=== PATIENT | male | born 1950 | race Caucasian/White ===

== ENCOUNTER 2017-02-19 05:04 | Emergency (ER) | payer MEDICARE, BC ==
[2017-02-19 05:31] VITALS: BP 208/98
[2017-02-19] MEDS ORDERED: Acetaminophen/HYDROcodone 325-5 MG Tab PO ONE (05:43)
--- NOTE | 2017-02-19 05:49 | EDM.PDOC ---
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 History of stroke and high blood pressure left toothache Pain Score (Numeric/FACES): 6 - Related Data Allergies Allergy/AdvReac Type Severity Reaction Status Date / Time No Known Allergies Allergy Verified 02/19/17 05:20 Home Meds: Home Meds Hydrocodone/Acetaminophen [Hydrocodon-Acetaminophen 5-325] 1 - 2 each PO Q4H PRN #16 tablet 02/19/17 [Rx] Past Medical History HEENT History: Reports: Impaired Vision Neurological History: Reports: CVA, Other (See Below) Other Neuro History: December 02 Stroke Psychiatric History: Reports: Anxiety Endocrine/Metabolic History: Reports: Diabetes, Type II - Infectious Disease History Infectious Disease History: Reports: Chicken Pox, Measles, Mumps - Past Surgical History Cardiovascular Surgical History: Reports: Valve Replacement Social & Family History - Tobacco Use Smoking Status *Q: Never Smoker - Caffeine Use Caffeine Use: Reports: Coffee - Recreational Drug Use Recreational Drug Use: No ED ROS ENT - Review of Systems Review Of Systems: ROS reveals no pertinent complaints other than HPI. HEENT: Reports: Dental Pain ED EXAM, ENT - Physical Exam Exam: See Below Exam Limited By: No Limitations General Appearance: Alert, Moderate Distress Nose: Normal Inspection, Normal Mucousa Mouth/Throat: Dental Pain (Dental caries left lower first molar) Head: Normocephalic (No) Neck: Normal Inspection, Non-Tender. No: Lymphadenopathy (R), Lymphadenopathy ( L) Cardiovascular: Normal Peripheral Pulses (We'll need to make any small or), Regular Rate, Rhythm Extremities: Normal Inspection Neurological: Alert, Oriented Skin: Warm, Dry, Intact (And he retired he) Course - Vital Signs Last Recorded V/S: Last Vital Signs Temp 35.5 C 02/19/17 05:22 Pulse 82 02/19/17 05:22 Resp 16 02/19/17 05:22 BP 208/98 H 02/19/17 05:22 Pulse Ox 95 02/19/17 05:22 - Orders/Labs/Meds Meds: Medications Discontinued Medications Generic Name Dose Route Start Last Admin Trade Name Nora PRN Reason Stop Dose Admin Hydrocodone Bitart/Acetaminophen 2 tab 02/19/17 05:43 [place] 325-5 Mg PO 02/19/17 05:44 ONETIME ONE - Re-Assessments/Exams Free Text/Narrative Re-Assessment/Exam: 02/19/17 05:47 A 66-year-old male with dental pain, cavity Dental extraction planned Needs analgesics Hydrocodone/Acetaminophen 5/325, 2 tablets by mouth Departure - Departure Time of Disposition: 05:48 Disposition: Home, Self-Care 01 Condition: good Clinical Impression: Dental caries - Discharge Information Prescriptions: Hydrocodone/Acetaminophen [Hydrocodon-Acetaminophen 5-325] 1 - 2 each PO Q4H PRN #16 tablet PRN Reason: Moderate to severe pain Referrals: PCP,None [Primary Care Provider] - Forms: ED Department Discharge
== END 2017-02-19 05:58 | disposition home or self-care (01) ==
LOC: JP.ED 05:04
DX: K02.9 Dental caries, unspecified (principal); E11.9 Type 2 diabetes mellitus without complications; Z86.73 Personal history of transient ischemic attack (TIA), and cerebral infarction without residual deficits; Z79.899 Other long term (current) drug therapy; Z95.4 Presence of other heart-valve replacement
CPT/HCPCS: 99283; A9270